=== PATIENT | male | born 1970 | race Caucasian/White ===

== ENCOUNTER 2022-10-04 13:07 | Day surgery (SDC) | payer BC, OTHER ==
[~2022-10-04] VITALS: Ht 177.8 cm; Wt 104.0 kg
--- NOTE | ~2022-10-04 | OR ---
[facility] [address], [place] [address] Draft DATE OF OPERATION: 10/04/2022 SURGEON: Giovani Charles MD PREOPERATIVE DIAGNOSIS: Colon screening. POSTOPERATIVE DIAGNOSIS: Polyps x2. PROCEDURES: Total colonoscopy to cecum with cold morcellation polypectomy x1 and cold snare polypectomy x1. ANESTHESIA: Intravenous sedation, fentanyl 150 mcg and Versed 5 mg. INDICATIONS: This 52-year-old man is a patient of Dr. Mosqueda of [facility] and was referred for screening colonoscopy. He has no symptoms of bleeding, diarrhea, constipation and no family history of colon cancer. He understands the risks of bleeding, infection, and perforation related to colonoscopy and wished to proceed. FINDINGS: The prep was good. Complete colonoscopy was undertaken of the cecum. The tissue behind the ileocecal valve was evaluated by elevation of mucosa with a biopsy forceps and complete intubation of the cecum was not forthcoming despite efforts to do so. He had two small polyps, both excised completely, one in the left colon in the sigmoid. There were no other findings of concern at this time. DESCRIPTION OF PROCEDURE: The patient was brought to the endoscopy suite and placed in lateral decubitus position, given intravenous sedation a point of slurred speech and nystagmus. Full cardiopulmonary monitoring was maintained. Digital rectal examination was normal. An Olympus video colonoscope was passed into the rectum and manipulated throughout the colon. In the left colon at approximately 60 cm, a small polyp was noted, this was excised with cold snare technique and passed for pathology. Scope was then advanced beyond this ultimately to the right colon with visualization of the cecum. Various efforts to intubate the cecum fully were not forthcoming, though it was well visualized PATIENT NAME: MASSIMO LUOIS JR OPERATIVE REPORT DATE OF : 66 REPORT #: [id number] PHYSICIAN: GIOVANI CHARLES MD PCP: [facility] REPORT IS CONFIDENTIAL AND NOT TO BE RELEASED WITHOUT AUTHORIZATION [facility] [address], [place] [address] Draft otherwise. The biopsy forceps was used to elevate the mucosa behind the ileocecal valve, showing no sign of abnormality. The scope was then withdrawn and examination undertaken. Further examination throughout the colon showed no sign of abnormality until the sigmoid, where another polyp was noted, this was excised with cold morcellation technique completely. Further withdrawal of retroflexed view in the rectum which showed minimal hemorrhoidal change. The scope was removed. The patient was taken to recovery room in good condition conclusion diagnosis polyps x2. PLAN: Recommend repeat colonoscopy in 3-5 years; if pathology shows adenoma, we will recommend three years; if hyperplastic only, five years. He will return to the ongoing care of [facility], Dr. Mosqueda. MD DAVID Ch/MODL /[id number] cc: [facility] Copies: ~ PATIENT NAME: MISSYMASSIMO JR OPERATIVE REPORT DATE OF : 66 REPORT #: [id number] PHYSICIAN: GIOVANI CHARLES MD PCP: [facility] REPORT IS CONFIDENTIAL AND NOT TO BE RELEASED WITHOUT AUTHORIZATION
[~2022-10-04 13:07] MED LIST: CLOTRIMAZOLE45 GM; NYAMYC15 GM TOP
--- NOTE | 2022-10-04 14:47 | NUR ---
10/04/22 Vicky7 Cande Gomes 1445-PATIENT ARRIVED TO PACU ON 2L NC RR EVEN. PATIENT LAYING LEFT LATERAL ABDOMEN SOFT. DROWSY AROUSES TO VERBAL STIMULI DENIES PAIN OR NAUSEA. EASILY DOZES BACK TO SLEEP. IVF INFUSING
== END 2022-10-04 15:25 | disposition home or self-care (01) ==
LOC: DS 13:07 → OPS 13:07 → DS 14:00 → OPS 15:25
PROVIDERS: ATTEND Surgery
PROC: 0DBE8ZX Excision of Large Intestine, Via Natural or Artificial Opening Endoscopic, Diagnostic (ICD-10-PCS; 2022-10-04)
PROC: 0DBN8ZX Excision of Sigmoid Colon, Via Natural or Artificial Opening Endoscopic, Diagnostic (ICD-10-PCS; principal; 2022-10-04 14:00)
DX: Z12.11 Encounter for screening for malignant neoplasm of colon (principal); K63.5 Polyp of colon; R22.9 Localized swelling, mass and lump, unspecified; E11.9 Type 2 diabetes mellitus without complications; F17.210 Nicotine dependence, cigarettes, uncomplicated; Z90.49 Acquired absence of other specified parts of digestive tract
CPT/HCPCS: 99153; G0500; J2250; J3010; J7121